=== PATIENT | female | born 1985 | race Asian ===

== ENCOUNTER 2024-02-27 18:26 | Inpatient (IN) ==
[2024-02-27] MEDS ORDERED: Prochlorperazine 5 mg/ml 2 ml VIAL (10 mg) IV PRN (19:11)
[2024-02-27] MEDS ORDERED: Lidocaine 1% VIAL 10 MG/ML 30 ML VIAL INJ PRN (19:11)
[2024-02-27] MEDS: Dinoprostone 10 MG VAG.SUPP VAGINAL ONE (20:29)
[2024-02-28] MEDS: Lactated Ringers 1000 ml BAG 1,000 ML IV SCH ×2 (13:00→20:12)
[2024-02-28] MEDS: Oxytocin in LR 20,000 MILLI.UNIT/1,000 ML BAG IV SCH (13:00)
[2024-02-28 13:39] LABS: ABS Eosinophils 0.1 10^3/uL (0.0-0.5); ABS Lymphocytes 1.3 10^3/uL (1.0-4.8); ABS Monocytes 0.5 10^3/uL (0.0-0.9); ABS Neutrophils 7.9 10^3/uL (1.5-7.6); ABS Nucleated RBC 0.01 10^3/ul; Eosinophil % 1.1 %; Hematocrit 39.5 % (35-45); Hemoglobin 13.4 g/dL (11.5-14.3); Lymphocyte % 13.6 %; Mean Corpuscular Hemoglobin 32.2 pg (27-33); Mean Corpuscular Volume 94.6 fL (80-97); Mean Platelet Volume 10.1 fL (7.5-11.2); Nucleated Red Blood Cells % 0.1 %/100WBC (0.0-0.8); Platelet Count 179 10^3/uL (150-450); Red Blood Count 4.17 10^6/uL (3.63-4.92); Red Cell Distribution Width 13.9 % (12-17); White Blood Count 9.8 10^3/uL (3.8-11.8)
[2024-02-28 15:27] LABS: Urine Benzodiazepine Screen None Detected (None Detect); Urine Cannabinoids Screen None Detected (None Detect); Urine Opiates Screen None Detected (None Detect)
[2024-02-28] MEDS: Lactated Ringers 1000 ml BAG 1,000 ML IV ONE (17:17)
[2024-02-28] MEDS: OBEPIDURAL (200 ML) 200 ML EPIDURAL ONE (17:23)
[2024-02-28] MEDS: Lidocaine 1.5% EPI 1:200,000 30 ML SDV ONE (17:24)
[2024-02-28] MEDS ORDERED: Sodium Citrate/Citric Acid LIQ 15 ML UDC PO PRN (17:30)
[2024-02-28] MEDS ORDERED: Phenylephrine 40 mcg/mL 10mL (400mcg) SYRINGE IV PUSH PRN ×3 (17:30→20:22)
[2024-02-28] MEDS: Phenylephrine 40 mcg/mL 10mL (400mcg) SYRINGE IV PUSH PRN (19:37)
[2024-02-28] MEDS: Ondansetron 4 mg VIAL 2 MG/ML 2 ml VIAL IV PRN (20:29)
[2024-02-28 20:42] LABS: Urine Appearance Clear; Urine Bilirubin Negative (Negative); Urine Blood 1+ (Negative); Urine Color Colorless; Urine Glucose Negative (Negative); Urine Ketones Negative (Negative); Urine Nitrite Negative (Negative); Urine Protein Negative (Negative); Urine Specific Gravity 1.006 (1.002-1.030); Urine Urobilinogen Negative (Negative)
[2024-02-28 21:52] LABS: Urine Bacteria Absent /HPF (Absent); Urine Red Blood Cell 2+(6-10/hpf) /HPF (0-Trace); Urine White Blood Cell Trace(0-5/hpf) /HPF (0-Trace)
[2024-02-29] MEDS: fentaNYL 100 mcg/2 ml 50 MCG/ML VIAL ONE (02:55)
[2024-02-29] MEDS ORDERED: Glycerin ADULT 2.4 gm SUPP PR PRN (03:36)
[2024-02-29] MEDS: Oxytocin in LR 20,000 MILLI.UNIT/1,000 ML BAG IV SCH (03:40)
[2024-02-29] MEDS ORDERED: Lactated Ringers 1000 ml BAG 1,000 ML IV SCH (04:00)
[2024-02-29] MEDS: Dibucaine 1% OINT 28.35 GM TUBE PR PRN (04:22)
[2024-02-29] MEDS: Witch Hazel PAD JAR TOPICAL PRN (04:22)
[2024-02-29] MEDS: ceFAZolin 2 GM in NS PREMIX 2 GM/100 ML BAG IVPB SCH ×2 (08:04→19:50)
[2024-02-29] MEDS: OBEPIDURAL (200 ML) 200 ML EPIDURAL SCH (19:45)
[2024-02-29] MEDS: Buffered Lidocaine 1% SYRIN 1 ml INTRADERM ONE (19:45)
[2024-02-29] MEDS: Lidocaine 1.5% EPI 1:200,000 30 ML SDV ONE (19:45)
[2024-02-29] MEDS: Lidocaine 2% w/ EPI 1:200,000 MPF 20 ML SDV VIAL ONE (19:45)
[2024-02-29] MEDS: Lactated Ringers 1000 ml BAG 1,000 ML IV ONE (19:45)
[2024-02-29] MEDS: miSOPROStol 100 mcg TAB ONE ×2 (19:45→19:46)
[2024-03-01 00:53] VITALS: BP 113/63
[2024-03-01 07:43] LABS: ABS Eosinophils 0.1 10^3/uL (0.0-0.5); ABS Lymphocytes 2.3 10^3/uL (1.0-4.8); ABS Monocytes 0.6 10^3/uL (0.0-0.9); ABS Nucleated RBC 0.02 10^3/ul; Hematocrit 28.8 % (35-45); Mean Corpuscular Hemoglobin 33.2 pg (27-33); Mean Corpuscular Hgb Conc 34.8 g/dL (31-36); Mean Corpuscular Volume 95.4 fL (80-97); Mean Platelet Volume 9.7 fL (7.5-11.2); Nucleated Red Blood Cells % 0.1 %/100WBC (0.0-0.8); Platelet Count 138 10^3/uL (150-450); Red Blood Count 3.02 10^6/uL (3.63-4.92); Red Cell Distribution Width 13.7 % (12-17); White Blood Count 15.1 10^3/uL (3.8-11.8)
== END 2024-03-01 19:25 | disposition home or self-care (01) | DRG 541 ==
LOC: MCHOBOUT 18:26 → MCHOB 18:39
PROVIDERS: ADMIT Advanced Practice Midwife; ATTEND Midwife